=== PATIENT | male | born 1975 ===

== ENCOUNTER 2021-03-05 02:03 | Emergency (ER) | payer SELFPAY ==
[2021-03-05 03:26] LABS: Urine Blood Trace-lysed (Negative); Urine Glucose Negative (Negative); Urine Protein 3+ (Negative); Urine Specific Gravity >=1.030 (1.005-1.030)
[2021-03-05 04:05] LABS: Barbiturates NEGATIVE (NEGATIVE); Benzodiazepines NEGATIVE (NEGATIVE); Cocaine NEGATIVE (NEGATIVE); METHAMPHETAM NEGATIVE (NEGATIVE); Methadone NEGATIVE (NEGATIVE); Opiates NEGATIVE (NEGATIVE); Phencyclidine NEGATIVE (NEGATIVE); THC Cannibis POSITIVE (NEGATIVE)
[2021-03-05 04:10] LABS: Absolute Lymphocytes (CBC) 1.4 K/uL (0.7-4.9); Basophils % 0.8 % (0-1.3); Hematocrit 52.3 % (39.6-49.0); Lymphocytes % 19.1 % (15.3-44.8); MPV 7.6 fL (7.6-11.3); RBC Red Blood Cell Count 5.63 M/uL (4.33-5.43)
[2021-03-05] MEDS ORDERED: THIAMINE 200 MG/2 ML INJ ONE (04:11)
[2021-03-05] MEDS ORDERED: NA CHLORIDE 0.9% 1,000 ML ONE (04:12)
[2021-03-05] MEDS ORDERED: FOLIC ACID 5 MG/ML VIAL ONE (04:12)
[2021-03-05] MEDS ORDERED: MULTIVITAMINS 10 ML VIAL (INJ) IV ONE (04:12)
[2021-03-05 04:32] LABS: Protime INR 0.91
[2021-03-05 04:42] LABS: ALT/SGPT 56 U/L (12-78); AST/SGOT 47 U/L (15-37); Albumin 4.4 g/dL (3.4-5.0); Alkaline Phosphatase 109 U/L (45-117); BUN Blood Urea Nitrogen 10 mg/dL (7-18); Bicarbonate 23 mmol/L (21-32); Bilirubin Direct 0.1 mg/dL (0-0.2); Bilirubin Total 0.5 mg/dL (0.2-1.0); Glucose Level 95 mg/dL (74-106); Potassium 3.7 mmol/L (3.5-5.1); Sodium Level 143 mmol/L (136-145)
[2021-03-05] MEDS ORDERED: FAMOTIDINE 20 MG/2 ML VIAL IV ONE (05:29)
[2021-03-05] MEDS ORDERED: LORAZEPAM 1 MG TABLET ONE (08:04)
[2021-03-05] MEDS ORDERED: LORazepam 2 MG/ML VIAL ONE (16:15)
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
--- NOTE | 2021-03-06 18:44 | EDPHYS ---
Physician Documentation [facility] Name: Ganga Caro Age: 45 yrs Sex: Male : 1975 Arrival Date: 03/05/2021 Time: 02:10 Bed 15 Private MD: ED Physician Willie Rodriguez HPI: 03/05 03:35 This 45 yrs old Unknown Male presents to ER via Ambulatory with complaints of Suicidal pkl Ideation. 03:35 The patient presents to the emergency department with depression, suicide ideation, and pkl the patient has a plan, to hang oneself. Onset: The symptoms/episode began/occurred just prior to arrival. Associated signs and symptoms: Pertinent positives; depression. Historical: - Allergies: 02:23 No Known Allergies; iw - PMHx: 02:23 Hypertension; Hyperlipidemia; Anxiety; iw - PSHx: 02:23 Appendectomy; iw - Immunization history:: Adult Immunizations Client reports receiving the 1st dose of the Covid vaccine. - Social history:: Smoking status: Patient reports the use of cigarette tobacco products, Patient uses alcohol, on a daily basis. bottle of vodka daily . ROS: 03:35 Eyes: Negative for injury, pain, redness, and discharge, ENT: Negative for injury, pkl pain, and discharge, Neck: Negative for injury, pain, and swelling, Cardiovascular: Negative for chest pain, palpitations, and edema, Respiratory: Negative for shortness of breath, cough, wheezing, and pleuritic chest pain, Abdomen/GI: Negative for abdominal pain, nausea, vomiting, diarrhea, and constipation, Back: Negative for injury and pain, : Negative for injury, bleeding, discharge, and swelling, MS/Extremity: Negative for injury and deformity, Skin: Negative for injury, rash, and discoloration, Neuro: Negative for headache, weakness, numbness, tingling, and seizure. 03:35 Psych: Positive for depression, suicidal ideation. Exam: 03:35 Head/Face: Normocephalic, atraumatic. Eyes: Pupils equal round and reactive to light, pkl extra-ocular motions intact. Lids and lashes normal. Conjunctiva and sclera are non-icteric and not injected. Cornea within normal limits. Periorbital areas with no swelling, redness, or edema. ENT: Nares patent. No nasal discharge, no septal abnormalities noted. Tympanic membranes are normal and external auditory canals are clear. Oropharynx with no redness, swelling, or masses, exudates, or evidence of obstruction, uvula midline. Mucous membranes moist. Neck: Trachea midline, no thyromegaly or masses palpated, and no cervical lymphadenopathy. Supple, full range of motion without nuchal rigidity, or vertebral point tenderness. No Meningismus. Chest/axilla: Normal chest wall appearance and motion. Nontender with no deformity. No lesions are appreciated. Cardiovascular: Regular rate and rhythm with a normal S1 and S2. No gallops, murmurs, or rubs. Normal PMI, no JVD. No pulse deficits. Respiratory: Lungs have equal breath sounds bilaterally, clear to auscultation and percussion. No rales, rhonchi or wheezes noted. No increased work of breathing, no retractions or nasal flaring. Abdomen/GI: Soft, non-tender, with normal bowel sounds. No distension or tympany. No guarding or rebound. No evidence of tenderness throughout. Back: No spinal tenderness. No costovertebral tenderness. Full range of motion. Skin: Warm, dry with normal turgor. Normal color with no rashes, no lesions, and no evidence of cellulitis. MS/ Extremity: Pulses equal, no cyanosis. Neurovascular intact. Full, normal range of motion. Neuro: Awake and alert, GCS 15, oriented to person, place, time, and situation. Cranial nerves II-XII grossly intact. Motor strength 5/5 in all extremities. Sensory grossly intact. Cerebellar exam normal. Normal gait. 03:35 Psych: Behavior/mood is cooperative, Affect is calm, Patient having thoughts of suicide. Plan for suicide is Attempted to hang himself Vital Signs: 02:19 BP 144 / 108; Pulse 100; Resp 16; Temp 97.2; Pulse Ox 98% on R/A; Weight 145.15 kg; iw Height 6 ft. 1 in. (185.42 cm); 07:58 BP 146 / 95; Pulse 72; Resp 20; Pulse Ox 94% on R/A; tr6 08:15 BP 137 / 95; Pulse 86; Resp 18; Pulse Ox 91% on R/A; tr6 10:00 BP 133 / 84; Pulse 85; Resp 18; Pulse Ox 93% on R/A; tr6 12:00 BP 120 / 84; Pulse 86; Resp 18; Pulse Ox 96% on R/A; tr6 15:00 BP 122 / 68; Pulse 81; Resp 18; Pulse Ox 95% on R/A; tr6 17:30 BP 148 / 98; Pulse 80; Resp 18; Pulse Ox 95% on R/A; tr6 06/05 03:31 BP 131 / 79; Pulse 76; Resp 14; Temp 98.1; Pulse Ox 95% ; ds4 06:13 BP 141 / 93; Pulse 59; Resp 16; Pulse Ox 98% on R/A; jb4 23:15 BP 146 / 96; Pulse 89; Resp 18; Pulse Ox 98% on R/A; lp1 06 04:44 BP 134 / 91; Pulse 60; Resp 16; Pulse Ox 99% on R/A; Pain 0/10; lp1 19:00 BP 152 / 93; Pulse 69; Resp 16; Temp 98.4(O); Pulse Ox 100% ; vg1 03/08 02:02 BP 132 / 85; Pulse 65; Resp 18; Pulse Ox 98% on R/A; ak2 04:08 BP 124 / 82; Pulse 72; Resp 18; Pulse Ox 100% ; ak2 08:00 BP 137 / 85; Pulse 75; Resp 17; Temp 98; Pulse Ox 100% ; bp 03/05 02:19 Body Mass Index 42.22 (145.15 kg, 185.42 cm) iw MDM: 03/05 03:03 Patient medically screened. pkl 11:29 Data reviewed: vital signs, nurses notes, lab test result(s), EKG. Data interpreted: [id number] Pulse oximetry: on room air is 94 %. Interpretation: acceptable. Counseling: I had a detailed discussion with the patient and/or guardian regarding: the historical points, exam findings, and any diagnostic results supporting the discharge/admit diagnosis, lab results. 03/08 10:36 ED course: Visited patient, updated him with with information about [facility] rn willing to take him this AM. Pt is upset because he thinks we have not been checking vitals. States he is voluntary but if takes longer than expected, does not plan on staying here for another day. . 03/05 03:25 Order name: Urine Dipstick-Ancillary; Complete Time: 03:32 EDMS 03/05 03:33 Order name: Acetaminophen; Complete Time: 04:57 pkl 03/05 03:33 Order name: Basic Metabolic Panel; Complete Time: 04:57 pkl 03/05 03:33 Order name: CBC with Diff; Complete Time: 04:24 pkl 03/05 03:33 Order name: ETOH Level; Complete Time: 04:57 pkl 03/05 03:33 Order name: Hepatic Function; Complete Time: 04:57 pkl 03/05 03:33 Order name: PT-INR; Complete Time: 04:57 pkl 03/05 03:33 Order name: Ptt, Activated; Complete Time: 04:57 pkl 03/05 03:33 Order name: Salicylate; Complete Time: 04:57 pkl 03/05 03:33 Order name: Urine Drug Screen; Complete Time: 04:24 pkl 03/05 11:18 Order name: ETOH Level; Complete Time: 12:13 ss 03/05 15:51 Order name: ETOH Level; Complete Time: 16:38 ss 03/07 00:34 Order name: SARS-COV-2 RT PCR; Complete Time: 10:07 EDMS 03/05 03:33 Order name: EKG; Complete Time: 03:34 pkl 03/05 03:33 Order name: EKG - Nurse/Tech; Complete Time: 04:26 pkl 03/05 03:33 Order name: IV Saline Lock; Complete Time: 03:59 pkl 03/05 03:33 Order name: Labs collected and sent; Complete Time: 03:59 pkl 03/05 03:33 Order name: Suicide Screening ([place]); Complete Time: 07:10 pkl 03/05 08:00 Order name: Diet Regular; Complete Time: 08:00 tr6 03/05 11:24 Order name: Diet Regular; Complete Time: 11:25 dh3 04 18:45 Order name: Diet Regular; Complete Time: 18:46 tr6 03/06 07:16 Order name: Diet Finger Food; Complete Time: 07:17 aa5 03/06 07:41 Order name: Diet Finger Food; Complete Time: 07:42 tr6 03/07 07:13 Order name: Diet Finger Food; Complete Time: 07:14 aa5 03/08 07:59 Order name: Diet Finger Food; Complete Time: 07:59 bp 03/05 03:33 Order name: Urine Dipstick-Ancillary (obtain specimen); Complete Time: 03:59 pkl Administered Medications: 03/05 03:56 Drug: Banana Bag - (NS 0.9% 1000 ml, foLIC Acid 1 mg, Thiamine 100 mg, Multivitamin 1 rr5 amp) Route: IV; Rate: calculated rate; Site: right antecubital; 05:28 Not Given (Patient Refused): Pepcid (famotidine) 20 mg PO once iw 07:30 Drug: Ativan (LORazepam) 1 mg Route: PO; tr6 08:35 Follow up: Response: No adverse reaction; Anxiety decreased tr6 16:06 Drug: Ativan (LORazepam) 1 mg Route: IVP; Site: right antecubital; tr6 16:06 Follow up: Response: No adverse reaction tr6 Disposition: 03/09 07:01 Co-signature as Attending Physician, Willie Rodriguez MD. rn Disposition: 03/06/21 18:44 Transfer ordered to Psych Facility. Diagnosis are Alcohol abuse, Suicide attempt, Suicidal ideations, Major depressive disorder, recurrent. - Reason for transfer: Higher level of care. - Accepting physician is to psych. - Condition is Fair. - Problem is new. - Symptoms have improved. Signatures: Dispatcher [employer] Prashant Stein MD MD cha Lam, Pin, MD MD pkl Nikki Leal RN RN iw Willie Rodriguez MD MD rn Roszak, Josh, PA PA [id number] Maciel Rasmussen RN RN bp Roque, Raymond RN RN rr5 Catrachita Sher, RN RN tr6 Corrections: (The following items were deleted from the chart) 03/05 02:24 02:23 Immunization history: Adult Immunizations Client reports receiving the 2nd dose iw of the Covid vaccine, iw 03/06 23:41 23:16 CORONAVIRUS+MR.LAB.BRZ ordered. [facility] 03/08 12:52 03/06 18:44 03/06/2021 18:44 Transfer ordered to Psych Facility. Diagnosis is Alcohol bp abuse; Suicide attempt; Suicidal ideations; Major depressive disorder, recurrent. Reason for transfer: Higher level of care. Accepting physician is to psych. Condition is Fair. Problem is new. Symptoms have improved. tamie
[2021-03-08 13:19] VITALS: O2SAT 100
[2021-03-08 13:21] VITALS: BP 137/85; TEMP 98
== END 2021-03-08 12:52 ==
LOC: ER 02:03
DX: R45.851 Suicidal ideations (principal); F33.9 Major depressive disorder, recurrent, unspecified; F10.10 Alcohol abuse, uncomplicated; F17.210 Nicotine dependence, cigarettes, uncomplicated; I10 Essential (primary) hypertension; E78.5 Hyperlipidemia, unspecified; F41.9 Anxiety disorder, unspecified; Y90.8 Blood alcohol level of 240 mg/100 ml or more; Z20.822 Contact with and (suspected) exposure to COVID-19
CPT/HCPCS: 36415; 80048; 80076; 80307; 80320; 80329; 81003; 85025; 85610; 85730; 93005; 96374; 96375; 99285; J3411; J7030